=== PATIENT | female | born 1970 | race Caucasian/White ===

== ENCOUNTER 2022-08-20 09:31 | Day surgery (SDC) | payer BC ==
[2022-08-20] MEDS ORDERED: fentaNYL 100 MCG/2 ML SDV ONE (09:52)
[2022-08-20] MEDS ORDERED: Propofol 200 MG/20 ML SDV ONE (09:52)
[2022-08-20] MEDS ORDERED: Midazolam 1 MG/ML 2 ML SDV ONE (09:52)
[2022-08-20] MEDS: Sodium Chloride 0.9% 1,000 ML IV SCH (10:08)
[2022-08-20 12:52] VITALS: BP 102/50; PULSE 53
== END 2022-08-20 12:53 | disposition home or self-care (01) ==
LOC: JP.SDS 09:31
PROVIDERS: ATTEND Surgery
DX: Z12.11 Encounter for screening for malignant neoplasm of colon (principal); Z80.0 Family history of malignant neoplasm of digestive organs; Z88.2 Allergy status to sulfonamides
CPT/HCPCS: 45378; J2250; J2704; J3010; J7030

== ENCOUNTER 2024-01-09 10:03 | Emergency (ER) | payer OTHER ==
[2024-01-09 10:46] VITALS: BP 101/47; PULSE 78
[2024-01-09 11:43] LABS: CORONAVIRUS COVID-19 NAA NEGATIVE (NEGATIVE); INFLUENZA A NAA NEGATIVE (NEGATIVE); INFLUENZA B NAA NEGATIVE (NEGATIVE); RESPIRATORY SYNCYTIAL VIR NAA NEGATIVE (NEGATIVE)
== END 2024-01-09 11:53 | disposition home or self-care (01) ==
LOC: JP.ED 10:03
DX: J02.8 Acute pharyngitis due to other specified organisms (principal); Z88.2 Allergy status to sulfonamides; Z86.19 Personal history of other infectious and parasitic diseases
CPT/HCPCS: 0241U; 87651; 99283